=== PATIENT | male | born 1995 | race Two or more races ===

== ENCOUNTER 2017-10-18 23:03 | Emergency (ER) | payer MEDICAID, OTHER ==
[~2017-10-18] VITALS: Ht 160 cm; Wt 62.0 kg
[2017-10-19 00:49] LABS: INTERNATIONAL NORMALIZED RATIO 1.08 (0.93-1.1); PROTHROMBIN TIME 11.2 Seconds (9.6-11.5)
[2017-10-19 00:53] LABS: ALANINE AMINOTRANSFERASE 26 U/L (12-78); ALBUMIN 3.7 g/dL (3.4-5.0); ANION GAP 8 mmol/L (5-15); CALCIUM 8.1 mg/dL (8.5-10.1); CHLORIDE 110 mmol/L (98-107); CREATININE 1.11 mg/dL (0.7-1.3)
[2017-10-19 00:55] LABS: ALKALINE PHOSPHATASE 94 U/L (45-117); BILIRUBIN,TOTAL 0.3 mg/dL (0.2-1.0)
[2017-10-19 00:56] LABS: MD YES; TOTAL PROTEIN 7.5 g/dL (6.4-8.2)
[2017-10-19 00:57] LABS: MEAN CORPUSCULAR HEMOGLOBIN 19.5 pg (27.5-34.5); MEAN CORPUSCULAR HGB CONC 30.3 g/dL (33.2-36.2); MEAN CORPUSCULAR VOLUME 64.4 fL (81-97); MEAN PLATELET VOLUME 7.8 fL (7.4-10.4); PLATELET COUNT 389 x10^3/uL (130-400); RED BLOOD COUNT 4.49 x10^6/uL (4.38-5.82); RED CELL DISTRIBUTION WIDTH 20.1 % (9.4-14.8)
[2017-10-19 01:01] LABS: BASOS#(MANUAL) 0.05 x10^3/uL (0-0.1); BASOS% (MANUAL) 1 % (0-1); EOS#(MANUAL) 0.27 x10^3/uL (0.0-0.4); EOS% (MANUAL) 5 % (1-7); LYMPH#(MANUAL) 1.86 x10^3/uL (1-3.4); LYMPHS% (MANUAL) 35 % (22-44); MONOS#(MANUAL) 1.17 x10^3/uL (0.3-2.7); MONOS% (MANUAL) 22 % (2-9); SEG#(MANUAL) 1.96 x10^3/uL (1.8-6.8); SEGS% (MANUAL) 37 % (42-75)
[2017-10-19 01:06] LABS: ANISOCYTOSIS 1+
[2017-10-19 01:07] LABS: MICROCYTOSIS 1+; OVALOCYTES 1+; POLYCHROMASIA 1+
[2017-10-19 01:08] LABS: <PLATELET ESTIMATE> ADEQUATE; LARGE PLATELETS 1+
[2017-10-19 01:10] LABS: HYPOCHROMIA 1+
[2017-10-19 01:14] VITALS: BP 115/70
== END 2017-10-19 02:00 | disposition home or self-care (01) ==
LOC: ED 23:58
DX: K92.2 Gastrointestinal hemorrhage, unspecified (principal); D64.9 Anemia, unspecified
CPT/HCPCS: 36415; 80053; 83690; 85025; 85610; 85730; 99284

== ENCOUNTER 2018-01-13 10:19 | Inpatient (IN) | payer MEDICAID, OTHER ==
[2018-01-13] VITALS (14 sets, daily range): BP systolic 99–125; BP diastolic 54–75
[~2018-01-13] VITALS: Ht 160 cm; Wt 55.9 kg
[2018-01-13] MEDS ORDERED: SODIUM CHLORIDE FLUSH 10ML SYR IVF ONE (11:00)
[2018-01-13] MEDS ORDERED: SODIUM CHLORIDE 0.9% 1,000ML IVBOLUS ONE (11:00)
[2018-01-13 11:18] LABS: ALANINE AMINOTRANSFERASE 11 U/L (12-78); ALBUMIN 2.3 g/dL (3.4-5.0); ANION GAP 9 mmol/L (5-15); CALCIUM 7.9 mg/dL (8.5-10.1); CHLORIDE 105 mmol/L (98-107); CREATININE 1.24 mg/dL (0.7-1.3); INTERNATIONAL NORMALIZED RATIO 1.01 (0.93-1.1); PROTHROMBIN TIME 10.4 Seconds (9.6-11.5)
[2018-01-13 11:21] LABS: ALKALINE PHOSPHATASE 85 U/L (45-117); BILIRUBIN,TOTAL 0.3 mg/dL (0.2-1.0); TOTAL PROTEIN 6.7 g/dL (6.4-8.2)
[2018-01-13 11:27] LABS: MEAN CORPUSCULAR VOLUME 58.6 fL (81-97); MEAN PLATELET VOLUME 7.4 fL (7.4-10.4); PLATELET COUNT 576 x10^3/uL (130-400); RED BLOOD COUNT 2.28 x10^6/uL (4.38-5.82); RED CELL DISTRIBUTION WIDTH 19.6 % (9.4-14.8)
[2018-01-13 11:29] LABS: HEMOGRAM NOTE RECHECKED
[2018-01-13 12:06] LABS: MD YES
[2018-01-13 12:08] LABS: BANDS%(MANUAL) 22 % (0-7); BASOS#(MANUAL) 0.16 x10^3/uL (0-0.1); BASOS% (MANUAL) 1 % (0-1); LYMPH#(MANUAL) 1.27 x10^3/uL (1-3.4); LYMPHS% (MANUAL) 8 % (22-44); MONOS#(MANUAL) 1.27 x10^3/uL (0.3-2.7); MONOS% (MANUAL) 8 % (2-9); NRBC % (MANUAL) 4 % (0-1); SEGS% (MANUAL) 61 % (42-75)
[2018-01-13 12:12] LABS: ANISOCYTOSIS 2+; HYPOCHROMIA 2+; MICROCYTOSIS 2+
[2018-01-13 12:14] LABS: <PLATELET ESTIMATE> INCREASED; <PLT MORPHOLOGY> NORMAL PLT MORPH; POLYCHROMASIA 2+
[2018-01-13] MEDS ORDERED: ACETAMINOPHEN 500 MG TABLET ONE (13:21)
[2018-01-13] MEDS ORDERED: ACETAMINOPHEN 500 MG TABLET PO ONE (13:30)
[2018-01-13] MEDS: NS + 20MEQ KCL 1,000 ML IV SCH ×2 (13:43→23:31)
[2018-01-13 13:51] LABS: ABSOLUTE RETICS # 0.112 x10^6/uL (0.5-1.5); RETICULOCYTE COUNT % 4.96 % (0.5-1.5)
[2018-01-13 13:56] LABS: RED BLOOD COUNT 2.26 x10^6/uL (4.38-5.82)
[2018-01-13] MEDS ORDERED: ACETAMINOPHEN 325 MG TABLET PO PRN (14:00)
[2018-01-13] MEDS ORDERED: ONDANSETRON 2MG/ML, 2ML IVPush PRN (14:00)
[2018-01-14 06:18] LABS: MEAN CORPUSCULAR HEMOGLOBIN 23.9 pg (27.5-34.5); MEAN CORPUSCULAR HGB CONC 32.4 g/dL (33.2-36.2); MEAN CORPUSCULAR VOLUME 73.9 fL (81-97); MEAN PLATELET VOLUME 7.8 fL (7.4-10.4); PLATELET COUNT 419 x10^3/uL (130-400); RED BLOOD COUNT 3.38 x10^6/uL (4.38-5.82); RED CELL DISTRIBUTION WIDTH 31.3 % (9.4-14.8)
[2018-01-14 06:23] LABS: ALBUMIN 1.9 g/dL (3.4-5.0); ANION GAP 7 mmol/L (5-15); CALCIUM 8.1 mg/dL (8.5-10.1); CHLORIDE 110 mmol/L (98-107)
[2018-01-14 06:27] LABS: ALANINE AMINOTRANSFERASE 8 U/L (12-78); ALKALINE PHOSPHATASE 73 U/L (45-117); BILIRUBIN,TOTAL 0.7 mg/dL (0.2-1.0); CREATININE 0.98 mg/dL (0.7-1.3)
[2018-01-14 06:50] LABS: BAND#(MANUAL) 1.88 x10^3/uL; BANDS%(MANUAL) 19 % (0-7); LYMPH#(MANUAL) 1.09 x10^3/uL (1-3.4); LYMPHS% (MANUAL) 11 % (22-44); MD YES; SEG#(MANUAL) 5.54 x10^3/uL (1.8-6.8); SEGS% (MANUAL) 56 % (42-75)
[2018-01-14 06:51] LABS: MONOS#(MANUAL) 1.39 x10^3/uL (0.3-2.7); MONOS% (MANUAL) 14 % (2-9); NRBC % (MANUAL) 2 % (0-1); POLYCHROMASIA 1+
[2018-01-14 06:52] LABS: ANISOCYTOSIS 2+; HYPOCHROMIA 1+; MICROCYTOSIS 1+
[2018-01-14 06:53] LABS: <PLATELET ESTIMATE> ADEQUATE; <PLT MORPHOLOGY> NORMAL PLT MORPH
[2018-01-14 13:26] VITALS: BP 113/69
[2018-01-14 18:59] VITALS: BP 136/74
[2018-01-14] MEDS ORDERED: GOLYTELY 4,000ML ORAL.SOL PO ONE (19:00)
[2018-01-15 01:17] VITALS: BP 102/62
[2018-01-15 07:48] VITALS: BP 103/67
[2018-01-15] MEDS ORDERED: PROPOFOL 10 MG/ML, 20ML ONE (10:11)
[2018-01-15] MEDS ORDERED: MIDAZOLAM 1 MG/ML, 5ML ONE (14:08)
[2018-01-15 16:30] VITALS: BP 112/71
[2018-01-15] MEDS: methylPREDNISolone SOD SUCC 40 MG/ML IV SCH (16:32)
[2018-01-15 20:25] VITALS: BP 117/75
[2018-01-16 03:33] VITALS: BP 111/68
[2018-01-16] MEDS: methylPREDNISolone SOD SUCC 40 MG/ML IV SCH ×2 (04:29→16:18)
[2018-01-16 06:50] VITALS: BP 125/83
[2018-01-16 07:30] LABS: ANION GAP 7 mmol/L (5-15); CALCIUM 8.2 mg/dL (8.5-10.1); CHLORIDE 103 mmol/L (98-107); CREATININE 1.01 mg/dL (0.7-1.3)
[2018-01-16 07:56] LABS: FOLATE LEVEL 8.8 ng/mL (3.1-17.5)
[2018-01-16] MEDS: IRON SUCROSE COMPLEX 100MG/5ML IV SCH (08:09)
[2018-01-16] MEDS: LACTOBACILLUS CHEW TABLET PO SCH ×3 (08:10→21:20)
[2018-01-16] MEDS: SODIUM CHLORIDE 0.9% 1,000 ML IV SCH (08:10)
[2018-01-16 12:51] VITALS: BP 119/72
[2018-01-16] MEDS: MESALAMINE 1.2 GM TABLET.DR PO SCH (16:18)
[2018-01-16 19:29] VITALS: BP 120/73
[2018-01-17 01:03] VITALS: BP 118/68
[2018-01-17] MEDS: SODIUM CHLORIDE 0.9% 1,000 ML IV SCH ×2 (03:43→17:40)
[2018-01-17] MEDS: methylPREDNISolone SOD SUCC 40 MG/ML IV SCH ×2 (03:43→15:42)
[2018-01-17 07:44] VITALS: BP 116/71
[2018-01-17] MEDS: IRON SUCROSE COMPLEX 100MG/5ML IV SCH (08:22)
[2018-01-17] MEDS: MESALAMINE 1.2 GM TABLET.DR PO SCH ×2 (08:22→17:40)
[2018-01-17] MEDS: LACTOBACILLUS CHEW TABLET PO SCH ×3 (08:22→20:04)
[2018-01-17 14:00] VITALS: BP 104/65
[2018-01-17 19:20] VITALS: BP 116/72
[2018-01-18 00:40] VITALS: BP 113/73
[2018-01-18] MEDS: methylPREDNISolone SOD SUCC 40 MG/ML IV SCH ×2 (03:56→15:40)
[2018-01-18 05:16] LABS: MEAN CORPUSCULAR HEMOGLOBIN 24.3 pg (27.5-34.5); MEAN CORPUSCULAR HGB CONC 31.6 g/dL (33.2-36.2); MEAN CORPUSCULAR VOLUME 76.9 fL (81-97); MEAN PLATELET VOLUME 7.3 fL (7.4-10.4); PLATELET COUNT 501 x10^3/uL (130-400); RED BLOOD COUNT 3.28 x10^6/uL (4.38-5.82); RED CELL DISTRIBUTION WIDTH 32.6 % (9.4-14.8)
[2018-01-18 06:09] LABS: MD YES
[2018-01-18 06:11] LABS: BAND#(MANUAL) 1.39 x10^3/uL; BANDS%(MANUAL) 10 % (0-7); EOS#(MANUAL) 0.14 x10^3/uL (0.0-0.4); EOS% (MANUAL) 1 % (1-7); LYMPH#(MANUAL) 1.53 x10^3/uL (1-3.4); LYMPHS% (MANUAL) 11 % (22-44); NRBC % (MANUAL) 3 % (0-1); SEGS% (MANUAL) 73 % (42-75)
[2018-01-18 06:12] LABS: MONOS% (MANUAL) 5 % (2-9); SEG#(MANUAL) 10.15 x10^3/uL (1.8-6.8)
[2018-01-18 06:13] LABS: ANISOCYTOSIS 2+; POLYCHROMASIA 2+
[2018-01-18 06:14] LABS: HYPOCHROMIA 1+; MICROCYTOSIS 1+
[2018-01-18 06:15] LABS: <PLATELET ESTIMATE> INCREASED; <PLT MORPHOLOGY> NORMAL PLT MORPH
[2018-01-18] MEDS: SODIUM CHLORIDE 0.9% 1,000 ML IV SCH ×2 (06:19→20:09)
[2018-01-18 06:22] VITALS: BP_SYST 112; BP_SYST 127; BP_DIAS 76; BP_DIAS 79
[2018-01-18] MEDS: LACTOBACILLUS CHEW TABLET PO SCH ×3 (08:20→20:09)
[2018-01-18] MEDS: IRON SUCROSE COMPLEX 100MG/5ML IV SCH (08:20)
[2018-01-18] MEDS: MESALAMINE 1.2 GM TABLET.DR PO SCH ×2 (08:20→17:19)
[2018-01-18 12:30] VITALS: BP 120/76
[2018-01-18 18:54] VITALS: BP 119/64
[2018-01-19 02:29] VITALS: BP 113/73
[2018-01-19] MEDS: methylPREDNISolone SOD SUCC 40 MG/ML IV SCH ×2 (03:45→15:13)
[2018-01-19] MEDS: IRON SUCROSE COMPLEX 100MG/5ML IV SCH (07:49)
[2018-01-19] MEDS: MESALAMINE 1.2 GM TABLET.DR PO SCH (07:49)
[2018-01-19] MEDS: LACTOBACILLUS CHEW TABLET PO SCH ×2 (07:49→15:14)
[2018-01-19 07:53] VITALS: BP 116/74
[2018-01-19] MEDS: SODIUM CHLORIDE 0.9% 1,000 ML IV SCH (08:50)
[2018-01-19 12:41] VITALS: BP 110/72
[2018-01-19] MEDS ORDERED: FERR324T5 PO (12:58)
[2018-01-19] MEDS ORDERED: PRED20TA PO ×2 (12:58→13:08)
[2018-01-19] MEDS ORDERED: MESA1.2T PO (12:58)
[2018-01-19] MEDS ORDERED: ACID1TAB7 PO (12:58)
[2018-01-19] MEDS ORDERED: ACET325T14 PO (12:58)
== END 2018-01-19 16:04 | disposition home or self-care (01) | DRG 386 ==
LOC: ED 12:43 → EDIP 12:44 → ED 13:01 → CCU 14:51 → 3NE 01-14 12:27
PROVIDERS: ADMIT Internal Medicine; ATTEND Internal Medicine
PROC: 30233N1 Transfusion of Nonautologous Red Blood Cells into Peripheral Vein, Percutaneous Approach (ICD-10-PCS; principal; 2018-01-13)
PROC: 0DJ08ZZ Inspection of Upper Intestinal Tract, Via Natural or Artificial Opening Endoscopic (ICD-10-PCS; 2018-01-15)
PROC: 0DBE8ZX Excision of Large Intestine, Via Natural or Artificial Opening Endoscopic, Diagnostic (ICD-10-PCS; 2018-01-15 14:30)
DX: K51.911 Ulcerative colitis, unspecified with rectal bleeding (principal); E44.0 Moderate protein-calorie malnutrition; E87.1 Hypo-osmolality and hyponatremia; R57.9 Shock, unspecified; R65.10 Systemic inflammatory response syndrome (SIRS) of non-infectious origin without acute organ dysfunction; D50.0 Iron deficiency anemia secondary to blood loss (chronic); D72.825 Bandemia; Z68.21 Body mass index [BMI] 21.0-21.9, adult; G47.00 Insomnia, unspecified
CPT/HCPCS: 36415; 36430; 80048; 80053; 82607; 82728; 82746; 83540; 83550; 83690; 84466; 85014; 85018; 85025; 85045; 85610; 85730; 86677; 86850; 86900; 86923; 87040; 87081; 88305; 93005; 99291; J1756; J2250; J2704; J3480; J2920; J7030; P9016

== ENCOUNTER 2018-01-30 11:54 | Inpatient (IN) | payer MEDICAID, OTHER ==
[2018-01-30] VITALS (8 sets, daily range): BP systolic 111–129; BP diastolic 67–85
[~2018-01-30] VITALS: Ht 160 cm; Wt 50.0 kg
[~2018-01-30 11:54] MED LIST: ACET325T14 PO; ACID1TAB7 PO; FERR324T5 PO; MESA1.2T PO; PRED20TA PO
[2018-01-30] MEDS ORDERED: PANTOPRAZOLE 40 MG IV ONE (12:55)
[2018-01-30] MEDS ORDERED: PANTOPRAZOLE 40 MG IV IVPush ONE (13:00)
[2018-01-30] MEDS ORDERED: SODIUM CHLORIDE FLUSH 10ML SYR IVF ONE (13:00)
[2018-01-30] MEDS ORDERED: SODIUM CHLORIDE 0.9% 1,000ML IVBOLUS ONE (13:00)
[2018-01-30 13:11] LABS: INTERNATIONAL NORMALIZED RATIO 0.97 (0.93-1.1); PROTHROMBIN TIME 10.1 Seconds (9.6-11.5)
[2018-01-30 13:12] LABS: MEAN CORPUSCULAR HEMOGLOBIN 23.4 pg (27.5-34.5); MEAN CORPUSCULAR VOLUME 77.9 fL (81-97); MEAN PLATELET VOLUME 6.6 fL (7.4-10.4); PLATELET COUNT 445 x10^3/uL (130-400); RED BLOOD COUNT 2.41 x10^6/uL (4.38-5.82); RED CELL DISTRIBUTION WIDTH 31.2 % (9.4-14.8)
[2018-01-30 13:14] LABS: ALANINE AMINOTRANSFERASE 31 U/L (12-78); ALBUMIN 2.1 g/dL (3.4-5.0); ANION GAP 7 mmol/L (5-15); CHLORIDE 105 mmol/L (98-107); CREATININE 0.88 mg/dL (0.7-1.3)
[2018-01-30 13:16] LABS: ALKALINE PHOSPHATASE 96 U/L (45-117); BILIRUBIN,TOTAL 0.2 mg/dL (0.2-1.0); TOTAL PROTEIN 6.4 g/dL (6.4-8.2)
[2018-01-30 13:26] LABS: BASOPHILS # (AUTO) 0.01 x10^3/uL (0-0.1); BASOPHILS % (AUTO) 0 % (0-1); EOSINOPHILS # (AUTO) 0.01 x10^3/uL (0-0.4); EOSINOPHILS % (AUTO) 0 % (1-7); LYMPHOCYTES # (AUTO) 0.35 x10^3/uL (1-3.4); LYMPHOCYTES % (AUTO) 4 % (22-44); MD MORPH REVIEW ONLY; MONOCYTES # (AUTO) 0.27 x10^3/uL (0.2-0.8); MONOCYTES % (AUTO) 3 % (2-9); NEUTROPHILS # (AUTO) 8.37 x10^3/uL (1.8-6.8); NEUTROPHILS % (AUTO) 93 % (42-75)
[2018-01-30 13:27] LABS: ANISOCYTOSIS 2+; MICROCYTOSIS 1+; POLYCHROMASIA 2+
[2018-01-30 13:28] LABS: <PLATELET ESTIMATE> INCREASED; SMALL PLATELETS 1+
[2018-01-30 13:29] LABS: HYPOCHROMIA 2+
[2018-01-30] MEDS ORDERED: POLYETHYLENE GLYCOL 17 GM PACKET PO PRN (17:00)
[2018-01-30] MEDS ORDERED: ONDANSETRON ODT 4 MG PO PRN (17:00)
[2018-01-30] MEDS: LACTOBACILLUS CHEW TABLET PO SCH ×2 (17:00→21:00)
[2018-01-30] MEDS ORDERED: ACETAMINOPHEN 325 MG TABLET PO PRN (17:00)
[2018-01-30] MEDS ORDERED: HEPARIN wt. based STROKE protocol IV PRN (17:30)
[2018-01-30] MEDS ORDERED: DO NOT GIVE XX PRN (17:30)
[2018-01-30] MEDS ORDERED: FENTANYL PF 100 MCG/2ML ONE (18:40)
[2018-01-30] MEDS ORDERED: LIDOCAINE-MPF 1%, 2ML ONE (18:41)
[2018-01-30] MEDS ORDERED: MIDAZOLAM 1 MG/ML, 2ML ONE (18:57)
[2018-01-30] MEDS: methylPREDNISolone SOD SUCC 125 MG/2 ML IVPush SCH (20:24)
[2018-01-30] MEDS: MESALAMINE 1.2 GM TABLET.DR PO SCH (20:24)
[2018-01-30] MEDS: SODIUM CHLORIDE 0.9% 1,000 ML IV SCH (20:30)
[2018-01-31 00:17] VITALS: BP 103/65
[2018-01-31] MEDS: SODIUM CHLORIDE 0.9% 1,000 ML IV SCH ×3 (04:30→18:54)
[2018-01-31 06:21] LABS: ALANINE AMINOTRANSFERASE 26 U/L (12-78); ANION GAP 8 mmol/L (5-15); CALCIUM 8.3 mg/dL (8.5-10.1); CHLORIDE 110 mmol/L (98-107); CREATININE 0.72 mg/dL (0.7-1.3)
[2018-01-31 06:23] LABS: ALKALINE PHOSPHATASE 88 U/L (45-117); BILIRUBIN,TOTAL 0.3 mg/dL (0.2-1.0); TOTAL PROTEIN 6.1 g/dL (6.4-8.2)
[2018-01-31 06:28] LABS: MEAN CORPUSCULAR HEMOGLOBIN 26.3 pg (27.5-34.5); MEAN CORPUSCULAR HGB CONC 31.8 g/dL (33.2-36.2); MEAN CORPUSCULAR VOLUME 82.9 fL (81-97); MEAN PLATELET VOLUME 6.7 fL (7.4-10.4); PLATELET COUNT 358 x10^3/uL (130-400); RED BLOOD COUNT 3.43 x10^6/uL (4.38-5.82); RED CELL DISTRIBUTION WIDTH 26.1 % (9.4-14.8)
[2018-01-31 06:54] LABS: BASOPHILS # (AUTO) 0.01 x10^3/uL (0-0.1); BASOPHILS % (AUTO) 0 % (0-1); EOSINOPHILS % (AUTO) 0 % (1-7); LYMPHOCYTES # (AUTO) 0.77 x10^3/uL (1-3.4); LYMPHOCYTES % (AUTO) 6 % (22-44); MD MORPH REVIEW ONLY; MONOCYTES # (AUTO) 0.52 x10^3/uL (0.2-0.8); MONOCYTES % (AUTO) 4 % (2-9); NEUTROPHILS # (AUTO) 11.12 x10^3/uL (1.8-6.8); NEUTROPHILS % (AUTO) 90 % (42-75)
[2018-01-31 06:55] LABS: ANISOCYTOSIS 2+; HYPOCHROMIA 1+; MICROCYTOSIS 1+; POLYCHROMASIA 2+
[2018-01-31 06:56] LABS: <PLATELET ESTIMATE> ADEQUATE; <PLT MORPHOLOGY> NORMAL PLT MORPH
[2018-01-31] MEDS: PANTOPRAZOLE 40 MG IV IVPush SCH (08:04)
[2018-01-31] MEDS: methylPREDNISolone SOD SUCC 125 MG/2 ML IVPush SCH ×2 (08:04→20:45)
[2018-01-31] MEDS: LACTOBACILLUS CHEW TABLET PO SCH ×3 (08:05→20:45)
[2018-01-31] MEDS: MESALAMINE 1.2 GM TABLET.DR PO SCH ×2 (08:05→17:42)
[2018-01-31] MEDS: FERROUS SULFATE 325 MG TABLET PO SCH (08:05)
[2018-01-31] MEDS: HEPARIN 5,000 UNITS/ML, 1ML SQ SCH ×2 (10:05→17:43)
[2018-01-31] MEDS: NEOMYCIN SULFATE 500 MG TABLET PO SCH ×3 (13:06→23:07)
[2018-01-31] MEDS: metroNIDAZOLE 500 MG TABLET PO SCH ×3 (13:06→23:06)
[2018-01-31] MEDS: MAGNESIUM CITRATE 300ML ORAL SOL PO SCH ×2 (15:52→20:45)
[2018-02-01] MEDS: HEPARIN 5,000 UNITS/ML, 1ML SQ SCH ×3 (02:29→18:32)
[2018-02-01] MEDS: SODIUM CHLORIDE 0.9% 1,000 ML IV SCH ×2 (03:59→12:03)
[2018-02-01] MEDS: methylPREDNISolone SOD SUCC 125 MG/2 ML IVPush SCH ×2 (07:57→19:54)
[2018-02-01] MEDS: PANTOPRAZOLE 40 MG IV IVPush SCH (07:57)
[2018-02-01] MEDS: MESALAMINE 1.2 GM TABLET.DR PO SCH ×2 (08:00→17:00)
[2018-02-01] MEDS: FERROUS SULFATE 325 MG TABLET PO SCH (08:44)
[2018-02-01] MEDS: LACTOBACILLUS CHEW TABLET PO SCH ×3 (08:44→19:54)
[2018-02-01] MEDS ORDERED: BUPIVACAINE/PF-EPI 0.5% 1:200K ONE (13:31)
[2018-02-01] MEDS ORDERED: MIDAZOLAM 1 MG/ML, 2ML ONE ×2 (13:58→16:48)
[2018-02-01] MEDS ORDERED: FENTANYL PF 100 MCG/2ML ONE ×3 (13:59→16:36)
[2018-02-01] MEDS ORDERED: CEFOTETAN 2 GM ONE (14:09)
[2018-02-01] MEDS ORDERED: ROCURONIUM 10MG/ML,5ML ONE (14:09)
[2018-02-01] MEDS ORDERED: DEXAMETHASONE 4 MG/ML, 1ML ONE (14:09)
[2018-02-01] MEDS ORDERED: SUCCINYLCHOLINE 20 MG/ML, 10ML ONE (14:09)
[2018-02-01] MEDS ORDERED: PROPOFOL 10 MG/ML, 20ML ONE (14:09)
[2018-02-01] MEDS ORDERED: BUPIVACAINE/PF 0.5% INFIL ONE (14:48)
[2018-02-01] MEDS ORDERED: HALOPERIDOL 5 MG/ML IV PRN (15:00)
[2018-02-01] MEDS ORDERED: ALBUTEROL SULFATE 2.5 MG/3 ML NPPB PRN (15:00)
[2018-02-01] MEDS ORDERED: ACETAMINOPHEN 325 MG TABLET PO PRN (15:00)
[2018-02-01] MEDS ORDERED: PROMETHAZINE 25 MG/ML, 1ML IV PRN (15:00)
[2018-02-01] MEDS ORDERED: OXYcodone 5 MG/5 ML ORAL.SOL UDC PO PRN (15:00)
[2018-02-01] MEDS ORDERED: MIDAZOLAM 1 MG/ML, 2ML IV PRN (15:00)
[2018-02-01] MEDS ORDERED: hydrALAzine 20 MG/ML, 1ML IV PRN (15:00)
[2018-02-01] MEDS ORDERED: MEPERIDINE/PF 25MG/0.5ML IVPush PRN (15:00)
[2018-02-01] MEDS ORDERED: LABETALOL 5MG/ML, 20ML IV PRN (15:00)
[2018-02-01] MEDS ORDERED: ONDANSETRON ODT 8 MG PO PRN (15:00)
[2018-02-01] MEDS ORDERED: HYDROcodone/APAP 7.5-325MG/15ML UDC PO PRN (15:00)
[2018-02-01] MEDS ORDERED: EPHEDRINE 50 MG/ML, 1ML IVPush PRN (15:00)
[2018-02-01] MEDS ORDERED: HYDROmorphone 2 MG/ML, 1ML ONE (15:59)
[2018-02-01] MEDS: FENTANYL PF 100 MCG/2ML IV PRN ×3 (16:13→16:40)
[2018-02-01] MEDS: HYDROmorphone 1 MG/ML, 1ML IV PRN ×4 (16:18→17:00)
[2018-02-01] MEDS ORDERED: MEPERIDINE/PF 50 MG/ML ONE (16:44)
[2018-02-01] MEDS: OXYcodone IR 5MG TABLET PO PRN (19:54)
[2018-02-02] MEDS: OXYcodone IR 5MG TABLET PO PRN ×4 (00:27→19:18)
[2018-02-02] MEDS: SODIUM CHLORIDE 0.9% 1,000 ML IV SCH ×2 (00:29→08:39)
[2018-02-02] MEDS: HEPARIN 5,000 UNITS/ML, 1ML SQ SCH ×2 (02:40→10:41)
[2018-02-02] MEDS: MESALAMINE 1.2 GM TABLET.DR PO SCH ×2 (07:31→16:42)
[2018-02-02] MEDS: methylPREDNISolone SOD SUCC 125 MG/2 ML IVPush SCH ×2 (07:31→19:17)
[2018-02-02] MEDS: PANTOPRAZOLE 40 MG IV IVPush SCH (07:31)
[2018-02-02] MEDS: LACTOBACILLUS CHEW TABLET PO SCH ×3 (08:51→21:59)
[2018-02-02] MEDS: FERROUS SULFATE 325 MG TABLET PO SCH (08:51)
[2018-02-02] MEDS ORDERED: HEPARIN 25,000 UNITS/500ML PMX 500 ML IV PRN (15:00)
[2018-02-02] MEDS ORDERED: HEPARIN wt. based STROKE protocol MC PRN (15:00)
[2018-02-02 17:43] VITALS: BP 117/77
[2018-02-02 18:58] VITALS: BP 128/76
[2018-02-03 00:39] VITALS: BP 106/66
[2018-02-03 05:42] LABS: ALBUMIN 2.2 g/dL (3.4-5.0); CALCIUM 8.4 mg/dL (8.5-10.1); CHLORIDE 105 mmol/L (98-107)
[2018-02-03 05:47] LABS: ALANINE AMINOTRANSFERASE 26 U/L (12-78); ALKALINE PHOSPHATASE 75 U/L (45-117); ANION GAP 8 mmol/L (5-15); BILIRUBIN,TOTAL 0.2 mg/dL (0.2-1.0); CREATININE 0.78 mg/dL (0.7-1.3); TOTAL PROTEIN 6.2 g/dL (6.4-8.2)
[2018-02-03 05:48] LABS: MEAN CORPUSCULAR HEMOGLOBIN 25.6 pg (27.5-34.5); MEAN CORPUSCULAR VOLUME 82.6 fL (81-97); MEAN PLATELET VOLUME 7.5 fL (7.4-10.4); PLATELET COUNT 217 x10^3/uL (130-400); RED BLOOD COUNT 3.08 x10^6/uL (4.38-5.82); RED CELL DISTRIBUTION WIDTH 25.9 % (9.4-14.8)
[2018-02-03 06:23] LABS: BASOPHILS % (AUTO) 0 % (0-1); EOSINOPHILS % (AUTO) 0 % (1-7); LYMPHOCYTES % (AUTO) 7 % (22-44); MD SCAN; MONOCYTES # (AUTO) 0.57 x10^3/uL (0.2-0.8); MONOCYTES % (AUTO) 6 % (2-9); NEUTROPHILS # (AUTO) 8.39 x10^3/uL (1.8-6.8); NEUTROPHILS % (AUTO) 87 % (42-75)
[2018-02-03 07:55] VITALS: BP 102/61
[2018-02-03] MEDS: PANTOPRAZOLE 40 MG IV IVPush SCH (08:07)
[2018-02-03] MEDS: methylPREDNISolone SOD SUCC 125 MG/2 ML IVPush SCH ×2 (08:07→21:25)
[2018-02-03] MEDS: MESALAMINE 1.2 GM TABLET.DR PO SCH ×2 (08:07→17:07)
[2018-02-03] MEDS: LACTOBACILLUS CHEW TABLET PO SCH ×3 (08:08→21:25)
[2018-02-03] MEDS: FERROUS SULFATE 325 MG TABLET PO SCH (08:08)
[2018-02-03] MEDS: OXYcodone IR 5MG TABLET PO PRN ×4 (08:08→23:09)
[2018-02-03 12:00] VITALS: BP 101/64
[2018-02-03] MEDS: HEPARIN 5,000 UNITS/ML, 1ML IV PRN ×2 (12:49→20:30)
[2018-02-03 19:44] VITALS: BP 109/63
[2018-02-03] MEDS: HEPARIN 25,000 UNITS/500ML PMX 500 ML IV PRN (21:24)
[2018-02-04 00:37] VITALS: BP 112/64
[2018-02-04 02:35] LABS: MEAN CORPUSCULAR HEMOGLOBIN 25.3 pg (27.5-34.5); MEAN CORPUSCULAR HGB CONC 30.8 g/dL (33.2-36.2); MEAN CORPUSCULAR VOLUME 82.2 fL (81-97); MEAN PLATELET VOLUME 6.8 fL (7.4-10.4); PLATELET COUNT 237 x10^3/uL (130-400); RED BLOOD COUNT 2.85 x10^6/uL (4.38-5.82); RED CELL DISTRIBUTION WIDTH 25.5 % (9.4-14.8)
[2018-02-04 02:45] LABS: ALANINE AMINOTRANSFERASE 50 U/L (12-78); ALBUMIN 2.4 g/dL (3.4-5.0); ANION GAP 7 mmol/L (5-15); CHLORIDE 107 mmol/L (98-107); CREATININE 0.82 mg/dL (0.7-1.3)
[2018-02-04 02:47] LABS: ALKALINE PHOSPHATASE 91 U/L (45-117); BILIRUBIN,TOTAL 0.2 mg/dL (0.2-1.0); TOTAL PROTEIN 6.1 g/dL (6.4-8.2)
[2018-02-04 03:05] LABS: BASOPHILS % (AUTO) 0 % (0-1); EOSINOPHILS % (AUTO) 0 % (1-7); LYMPHOCYTES # (AUTO) 0.38 x10^3/uL (1-3.4); LYMPHOCYTES % (AUTO) 3 % (22-44); MD MORPH REVIEW ONLY; MONOCYTES # (AUTO) 0.31 x10^3/uL (0.2-0.8); MONOCYTES % (AUTO) 3 % (2-9); NEUTROPHILS # (AUTO) 10.96 x10^3/uL (1.8-6.8); NEUTROPHILS % (AUTO) 94 % (42-75)
[2018-02-04 03:06] LABS: ANISOCYTOSIS 2+; MICROCYTOSIS 1+
[2018-02-04 03:07] LABS: <PLATELET ESTIMATE> ADEQUATE; HYPOCHROMIA 1+; POLYCHROMASIA 1+
[2018-02-04 03:08] LABS: <PLT MORPHOLOGY> NORMAL PLT MORPH
[2018-02-04] MEDS: HEPARIN 5,000 UNITS/ML, 1ML IV PRN ×3 (04:06→23:51)
[2018-02-04 05:45] VITALS: BP 109/54
[2018-02-04] MEDS: OXYcodone IR 5MG TABLET PO PRN (05:50)
[2018-02-04 07:15] VITALS: BP 103/62
[2018-02-04] MEDS: LACTOBACILLUS CHEW TABLET PO SCH ×3 (08:06→19:54)
[2018-02-04] MEDS: PANTOPRAZOLE 40 MG IV IVPush SCH (08:06)
[2018-02-04] MEDS: FERROUS SULFATE 325 MG TABLET PO SCH (08:06)
[2018-02-04] MEDS: methylPREDNISolone SOD SUCC 125 MG/2 ML IVPush SCH ×2 (08:06→19:55)
[2018-02-04] MEDS: MESALAMINE 1.2 GM TABLET.DR PO SCH ×2 (08:06→18:03)
[2018-02-04 15:48] VITALS: BP 119/73
[2018-02-04 19:46] VITALS: BP 123/72
[2018-02-04] MEDS: HEPARIN 25,000 UNITS/500ML PMX 500 ML IV PRN (19:50)
[2018-02-05 01:29] VITALS: BP 120/65
[2018-02-05 06:31] LABS: MEAN CORPUSCULAR HEMOGLOBIN 25.5 pg (27.5-34.5); MEAN CORPUSCULAR HGB CONC 30.6 g/dL (33.2-36.2); MEAN CORPUSCULAR VOLUME 83.4 fL (81-97); MEAN PLATELET VOLUME 7.2 fL (7.4-10.4); PLATELET COUNT 228 x10^3/uL (130-400); RED BLOOD COUNT 3.01 x10^6/uL (4.38-5.82); RED CELL DISTRIBUTION WIDTH 24.8 % (9.4-14.8)
[2018-02-05 06:42] LABS: ALANINE AMINOTRANSFERASE 50 U/L (12-78); ALBUMIN 2.4 g/dL (3.4-5.0); ANION GAP 7 mmol/L (5-15); CALCIUM 8.3 mg/dL (8.5-10.1); CHLORIDE 109 mmol/L (98-107); CREATININE 0.68 mg/dL (0.7-1.3)
[2018-02-05 06:45] LABS: ALKALINE PHOSPHATASE 92 U/L (45-117); BILIRUBIN,TOTAL 0.4 mg/dL (0.2-1.0); TOTAL PROTEIN 6.1 g/dL (6.4-8.2)
[2018-02-05 06:50] LABS: BASOPHILS # (AUTO) 0.03 x10^3/uL (0-0.1); BASOPHILS % (AUTO) 0 % (0-1); EOSINOPHILS % (AUTO) 0 % (1-7); LYMPHOCYTES # (AUTO) 0.69 x10^3/uL (1-3.4); LYMPHOCYTES % (AUTO) 7 % (22-44); MD SCAN; MONOCYTES % (AUTO) 5 % (2-9); NEUTROPHILS # (AUTO) 8.74 x10^3/uL (1.8-6.8); NEUTROPHILS % (AUTO) 88 % (42-75)
[2018-02-05] MEDS: PANTOPRAZOLE 40 MG IV IVPush SCH (07:48)
[2018-02-05] MEDS: FERROUS SULFATE 325 MG TABLET PO SCH (08:13)
[2018-02-05] MEDS: MESALAMINE 1.2 GM TABLET.DR PO SCH ×2 (08:13→15:48)
[2018-02-05] MEDS: LACTOBACILLUS CHEW TABLET PO SCH ×3 (08:13→20:33)
[2018-02-05] MEDS: methylPREDNISolone SOD SUCC 125 MG/2 ML IVPush SCH ×2 (08:13→20:33)
[2018-02-05 08:50] VITALS: BP 111/85
[2018-02-05] MEDS: OXYcodone IR 5MG TABLET PO PRN (11:44)
[2018-02-05] MEDS: HEPARIN 5,000 UNITS/ML, 1ML IV PRN (12:44)
[2018-02-05] MEDS: HEPARIN 25,000 UNITS/500ML PMX 500 ML IV PRN (13:25)
[2018-02-05 19:30] VITALS: BP 129/77
[2018-02-06 01:26] VITALS: BP 113/63
[2018-02-06 05:19] LABS: ALBUMIN 2.6 g/dL (3.4-5.0); ANION GAP 8 mmol/L (5-15); CALCIUM 8.7 mg/dL (8.5-10.1); CHLORIDE 108 mmol/L (98-107)
[2018-02-06 05:21] LABS: MEAN CORPUSCULAR HEMOGLOBIN 25.8 pg (27.5-34.5); MEAN CORPUSCULAR HGB CONC 30.8 g/dL (33.2-36.2); MEAN CORPUSCULAR VOLUME 83.6 fL (81-97); MEAN PLATELET VOLUME 7.4 fL (7.4-10.4); PLATELET COUNT 271 x10^3/uL (130-400); RED BLOOD COUNT 3.14 x10^6/uL (4.38-5.82); RED CELL DISTRIBUTION WIDTH 25.1 % (9.4-14.8)
[2018-02-06 05:22] LABS: ALANINE AMINOTRANSFERASE 63 U/L (12-78); ALKALINE PHOSPHATASE 93 U/L (45-117); BILIRUBIN,TOTAL 0.3 mg/dL (0.2-1.0); CREATININE 0.73 mg/dL (0.7-1.3); TOTAL PROTEIN 6.4 g/dL (6.4-8.2)
[2018-02-06 05:41] LABS: BASOPHILS # (AUTO) 0.01 x10^3/uL (0-0.1); BASOPHILS % (AUTO) 0 % (0-1); EOSINOPHILS # (AUTO) 0.22 x10^3/uL (0-0.4); EOSINOPHILS % (AUTO) 2 % (1-7); LYMPHOCYTES # (AUTO) 0.69 x10^3/uL (1-3.4); LYMPHOCYTES % (AUTO) 6 % (22-44); MD SCAN; MONOCYTES # (AUTO) 0.51 x10^3/uL (0.2-0.8); MONOCYTES % (AUTO) 5 % (2-9); NEUTROPHILS # (AUTO) 9.92 x10^3/uL (1.8-6.8); NEUTROPHILS % (AUTO) 87 % (42-75)
[2018-02-06] MEDS: HEPARIN 25,000 UNITS/500ML PMX 500 ML IV PRN (06:12)
[2018-02-06 07:53] VITALS: BP 114/67
[2018-02-06] MEDS: methylPREDNISolone SOD SUCC 125 MG/2 ML IVPush SCH ×2 (08:08→20:00)
[2018-02-06] MEDS: LACTOBACILLUS CHEW TABLET PO SCH ×3 (08:08→20:00)
[2018-02-06] MEDS: FERROUS SULFATE 325 MG TABLET PO SCH (08:08)
[2018-02-06] MEDS: PANTOPRAZOLE 40 MG IV IVPush SCH (08:08)
[2018-02-06] MEDS: MESALAMINE 1.2 GM TABLET.DR PO SCH ×2 (08:08→17:56)
[2018-02-06] MEDS: RIVAROXABAN 15 MG TABLET PO SCH ×2 (12:19→23:03)
[2018-02-06 14:14] VITALS: BP 104/63
[2018-02-06 20:44] VITALS: BP 113/63
[2018-02-07 02:14] VITALS: BP 101/61
[2018-02-07 05:05] LABS: ANION GAP 8 mmol/L (5-15); CALCIUM 8.9 mg/dL (8.5-10.1); CHLORIDE 107 mmol/L (98-107)
[2018-02-07 05:06] LABS: CREATININE 0.78 mg/dL (0.7-1.3)
[2018-02-07 05:11] LABS: MEAN CORPUSCULAR HEMOGLOBIN 25.7 pg (27.5-34.5); MEAN CORPUSCULAR HGB CONC 30.9 g/dL (33.2-36.2); MEAN CORPUSCULAR VOLUME 83.3 fL (81-97); MEAN PLATELET VOLUME 7.4 fL (7.4-10.4); PLATELET COUNT 336 x10^3/uL (130-400); RED CELL DISTRIBUTION WIDTH 24.8 % (9.4-14.8)
[2018-02-07 06:06] LABS: BASOPHILS % (AUTO) 0 % (0-1); EOSINOPHILS # (AUTO) 0.42 x10^3/uL (0-0.4); EOSINOPHILS % (AUTO) 4 % (1-7); LYMPHOCYTES # (AUTO) 0.75 x10^3/uL (1-3.4); LYMPHOCYTES % (AUTO) 7 % (22-44); MD SCAN; MONOCYTES # (AUTO) 0.49 x10^3/uL (0.2-0.8); MONOCYTES % (AUTO) 5 % (2-9); NEUTROPHILS # (AUTO) 8.66 x10^3/uL (1.8-6.8); NEUTROPHILS % (AUTO) 84 % (42-75)
[2018-02-07] MEDS: PANTOPRAZOLE 40 MG IV IVPush SCH (08:10)
[2018-02-07] MEDS: FERROUS SULFATE 325 MG TABLET PO SCH (08:10)
[2018-02-07 08:30] VITALS: BP 103/64
[2018-02-07] MEDS: methylPREDNISolone SOD SUCC 125 MG/2 ML IVPush SCH (10:04)
[2018-02-07] MEDS: MESALAMINE 1.2 GM TABLET.DR PO SCH (10:04)
[2018-02-07] MEDS: LACTOBACILLUS CHEW TABLET PO SCH (10:04)
[2018-02-07] MEDS: RIVAROXABAN 15 MG TABLET PO SCH (10:56)
[2018-02-07] MEDS ORDERED: RIVA1TAB PO (12:42)
[2018-02-07] MEDS ORDERED: PRED10TA PO (12:42)
[2018-02-07 13:18] VITALS: BP 118/70
[2018-02-27] MEDS ORDERED: RIVAROXABAN 20 MG TABLET PO SCH (11:00)
== END 2018-02-07 17:03 | disposition home or self-care (01) | DRG 329 ==
LOC: ED 13:26 → EDIP 13:27 → ED 13:47 → CCU 17:54 → 3NE 02-02 17:15
PROVIDERS: ADMIT Internal Medicine; ATTEND Internal Medicine
PROC: 06H03DZ Insertion of Intraluminal Device into Inferior Vena Cava, Percutaneous Approach (ICD-10-PCS; 2018-01-30)
PROC: 30233N1 Transfusion of Nonautologous Red Blood Cells into Peripheral Vein, Percutaneous Approach (ICD-10-PCS; 2018-01-30)
PROC: 0D1B4Z4 Bypass Ileum to Cutaneous, Percutaneous Endoscopic Approach (ICD-10-PCS; 2018-02-01)
PROC: 0DTE4ZZ Resection of Large Intestine, Percutaneous Endoscopic Approach (ICD-10-PCS; principal; 2018-02-01 14:00)
DX: K51.011 Ulcerative (chronic) pancolitis with rectal bleeding (principal); E43 Unspecified severe protein-calorie malnutrition; I82.411 Acute embolism and thrombosis of right femoral vein; D62 Acute posthemorrhagic anemia; Z68.1 Body mass index [BMI] 19.9 or less, adult; F19.20 Other psychoactive substance dependence, uncomplicated; I82.441 Acute embolism and thrombosis of right tibial vein; D63.8 Anemia in other chronic diseases classified elsewhere; Z83.3 Family history of diabetes mellitus; F17.200 Nicotine dependence, unspecified, uncomplicated; Z79.01 Long term (current) use of anticoagulants; Z79.4 Long term (current) use of insulin; Z79.52 Long term (current) use of systemic steroids; Z90.49 Acquired absence of other specified parts of digestive tract
CPT/HCPCS: 36415; 99285; S0074; 36430; 37191; 80048; 80053; 83605; 83735; 84100; 85014; 85018; 85025; 85520; 85610; 85730; 86850; 86900; 86923; 87081; 88307; 93005; 96374; 99156; 99157; C1880; J1100; J1170; J1644; J2175; J2250; J2704; J3010; J3490; C9113; J0330; J2930; J7030; P9016

== ENCOUNTER 2018-02-15 20:43 | Emergency (ER) | payer MEDICAID ==
[~2018-02-15] VITALS: Ht 160 cm; Wt 53.9 kg
[~2018-02-15 20:43] MED LIST changes: +PRED10TA PO; +RIVA1TAB PO
[2018-02-15] MEDS ORDERED: OMNIPAQUE 350 MG/ML, 100ML BOTTLE ONE (21:15)
[2018-02-15 21:41] LABS: MEAN CORPUSCULAR HEMOGLOBIN 24.8 pg (27.5-34.5); MEAN CORPUSCULAR VOLUME 79.8 fL (81-97); MEAN PLATELET VOLUME 6.3 fL (7.4-10.4); PLATELET COUNT 499 x10^3/uL (130-400); RED BLOOD COUNT 3.57 x10^6/uL (4.38-5.82); RED CELL DISTRIBUTION WIDTH 22.1 % (9.4-14.8)
[2018-02-15 21:46] LABS: ALANINE AMINOTRANSFERASE 32 U/L (12-78); ALBUMIN 3.3 g/dL (3.4-5.0); ANION GAP 8 mmol/L (5-15); CHLORIDE 107 mmol/L (98-107); CREATININE 0.83 mg/dL (0.7-1.3)
[2018-02-15 21:49] LABS: ALKALINE PHOSPHATASE 121 U/L (45-117); BILIRUBIN,TOTAL 0.3 mg/dL (0.2-1.0); TOTAL PROTEIN 7.4 g/dL (6.4-8.2)
[2018-02-15 22:00] LABS: BASOPHILS # (AUTO) 0.12 x10^3/uL (0-0.1); BASOPHILS % (AUTO) 1 % (0-1); EOSINOPHILS # (AUTO) 0.04 x10^3/uL (0-0.4); EOSINOPHILS % (AUTO) 0 % (1-7); LYMPHOCYTES # (AUTO) 1.31 x10^3/uL (1-3.4); LYMPHOCYTES % (AUTO) 11 % (22-44); MD SCAN; MONOCYTES # (AUTO) 0.77 x10^3/uL (0.2-0.8); MONOCYTES % (AUTO) 7 % (2-9); NEUTROPHILS # (AUTO) 9.59 x10^3/uL (1.8-6.8); NEUTROPHILS % (AUTO) 81 % (42-75)
[2018-02-15 23:10] VITALS: BP 118/70
== END 2018-02-15 23:12 | disposition home or self-care (01) ==
LOC: ED 22:09
DX: T81.30XA Disruption of wound, unspecified, initial encounter (principal); L76.82 Other postprocedural complications of skin and subcutaneous tissue; F17.200 Nicotine dependence, unspecified, uncomplicated
CPT/HCPCS: 36415; 74177; 80053; 83690; 85025; 99285; Q9967

== ENCOUNTER 2018-05-23 16:40 | Emergency (ER) | payer MEDICAID ==
[~2018-05-23] VITALS: Ht 160 cm; Wt 60.7 kg
[2018-05-23] MEDS ORDERED: SODIUM CHLORIDE 0.9% 1,000 ML IV ONE (17:09)
[2018-05-23] MEDS ORDERED: HYDROmorphone 2 MG/ML, 1ML ONE (17:16)
[2018-05-23] MEDS ORDERED: ONDANSETRON 2MG/ML, 2ML IVPush ONE (17:30)
[2018-05-23] MEDS ORDERED: SODIUM CHLORIDE 0.9% 1,000ML IVBOLUS ONE (17:30)
[2018-05-23] MEDS ORDERED: HYDROmorphone 1 MG/ML, 1ML IVPush PRN (17:30)
[2018-05-23] MEDS ORDERED: SODIUM CHLORIDE FLUSH 10ML SYR IVF ONE (17:30)
[2018-05-23 17:38] VITALS: BP 93/59
== END 2018-05-23 17:42 | disposition home or self-care (01) ==
LOC: ED 17:36
DX: T81.31XA Disruption of external operation (surgical) wound, not elsewhere classified, initial encounter (principal); K51.80 Other ulcerative colitis without complications; D62 Acute posthemorrhagic anemia; I82.409 Acute embolism and thrombosis of unspecified deep veins of unspecified lower extremity; Z93.3 Colostomy status; Y08.89XA Assault by other specified means, initial encounter; Y93.89 Activity, other specified; Y92.89 Other specified places as the place of occurrence of the external cause; Y99.8 Other external cause status
CPT/HCPCS: 96374; 99284; J1170; J7030

== ENCOUNTER 2018-10-09 23:09 | Inpatient (IN) | payer MEDICAID, OTHER ==
[~2018-10-09] VITALS: Ht 160 cm; Wt 50.7 kg
--- NOTE | 2018-10-09 23:22 | NUR ---
TASK RN: AZEEM ESCALANTE FROM [facility] W/ CO GENERALIZED ABD PAIN X FOUR DAYS. +NAUSEA/VOMITING/DECREASED OUTPUT FROM COLOSTOMY. COLOSTOMY PLACED FOR TX OF ULCERATIVE COLITIS. DENIES CP/BLOOD IN EMESIS OR STOOL/FEVER/URINARY SYMPTOMS. GIVEN ZOFRAN 4MG PO W/ IMPROVEMENT IN NAUSEA GIVEN 2L NS BY [facility] TODAY BP/SPO2 MONITOR IN PLACE. OFFICER AT BEDSIDE. PRIMARY RN, DEBRA ZAIDI.
[2018-10-09] MEDS ORDERED: SODIUM CHLORIDE FLUSH 10ML SYR IVF ONE (23:30)
--- NOTE | 2018-10-09 23:46 | NUR ---
report received from task RN Yumi. this RN unaware that there was an IV in place on arrival, second IV placed, labs drawn and sent to lab. pt given urinal, provided education to provide urine sample with gaurd assistance. pt demonstrates understanding. bp and spo2 monitors in place. pt awaiting lab results and CT.
[2018-10-09 23:52] LABS: BASOPHILS # (AUTO) 0.01 x10^3/uL (0-0.1); BASOPHILS % (AUTO) 0 % (0-1); EOSINOPHILS % (AUTO) 0 % (1-7); LYMPHOCYTES # (AUTO) 0.65 x10^3/uL (1-3.4); LYMPHOCYTES % (AUTO) 9 % (22-44); MD NO; MEAN CORPUSCULAR HEMOGLOBIN 26.3 pg (27.5-34.5); MEAN CORPUSCULAR HGB CONC 32.1 g/dL (33.2-36.2); MEAN CORPUSCULAR VOLUME 81.9 fL (81-97); MEAN PLATELET VOLUME 8.5 fL (7.4-10.4); MONOCYTES # (AUTO) 1.31 x10^3/uL (0.2-0.8); MONOCYTES % (AUTO) 17 % (2-9); NEUTROPHILS # (AUTO) 5.57 x10^3/uL (1.8-6.8); NEUTROPHILS % (AUTO) 74 % (42-75); PLATELET COUNT 389 x10^3/uL (130-400); RED CELL DISTRIBUTION WIDTH 15.3 % (9.4-14.8)
[2018-10-10 00:01] LABS: ALANINE AMINOTRANSFERASE 22 U/L (12-78); ANION GAP 6 mmol/L (5-15); CALCIUM 8.8 mg/dL (8.5-10.1); CHLORIDE 106 mmol/L (98-107); CREATININE 0.97 mg/dL (0.7-1.3)
--- NOTE | 2018-10-10 00:02 | NUR ---
SBAR report received from RN, Aarti. Pt resting on [facility], aware of plan for CT after lab results.
--- NOTE | 2018-10-10 00:02 | NUR ---
URINE COLLECTED AND SENT. REPORT GIVEN TO JUAN DENNIS.
[2018-10-10 00:03] LABS: ALKALINE PHOSPHATASE 106 U/L (45-117); BILIRUBIN,TOTAL 0.9 mg/dL (0.2-1.0); TOTAL PROTEIN 7.6 g/dL (6.4-8.2)
[2018-10-10 00:04] LABS: MICROSCOPIC NOT IND
[2018-10-10 00:07] LABS: CULTURE INDICATED? NO
--- NOTE | 2018-10-10 00:12 | NUR ---
Pt to imaging, with daniel and sonia, via lotus.
--- NOTE | 2018-10-10 00:38 | NUR ---
Dr. Purvis at bedside to evaluate pt.
[2018-10-10] MEDS ORDERED: SODIUM CHLORIDE 0.9% 1,000ML IVBOLUS ONE (01:00)
--- NOTE | 2018-10-10 01:06 | NUR ---
NGT placed in right nare, pt tolerated procedure well. Guard remains at bedside. Pt on monitors, VSS.
--- NOTE | 2018-10-10 01:18 | NUR ---
Admitting MD at bedside to evaluate pt for admission.
--- NOTE | 2018-10-10 01:29 | NUR ---
Telephone SBAR report given to Roosevelt MARTINEZ. Abelino and sonia made aware of new room assignment.
[2018-10-10 01:50] VITALS: BP 144/92
[2018-10-10] MEDS ORDERED: morphine SULFATE 10 MG/ML, 1ML IVPush PRN (02:00)
[2018-10-10] MEDS: SODIUM CHLORIDE 0.9% 1,000 ML IV SCH ×3 (02:13→21:56)
[2018-10-10] MEDS ORDERED: OMNIPAQUE 350 MG/ML, 100ML BOTTLE ONE (02:16)
[2018-10-10 08:00] VITALS: BP 122/83
[2018-10-10] MEDS ORDERED: FAMOTIDINE 20 MG TABLET PO SCH (09:00)
[2018-10-10] MEDS: FAMOTIDINE 20 MG/2 ML IVPush SCH ×2 (10:43→20:30)
[2018-10-10 14:34] VITALS: BP 133/85
[2018-10-10] MEDS: ONDANSETRON 2MG/ML, 2ML IVPush PRN (16:53)
[2018-10-10] MEDS ORDERED: BENZOCAINE AEROSOL SPRAY 20%, 60ML TP PRN (18:30)
[2018-10-10 20:06] VITALS: BP 128/86
[2018-10-11] MEDS: ONDANSETRON 2MG/ML, 2ML IVPush PRN ×2 (01:50→08:03)
[2018-10-11 02:00] VITALS: BP 136/91
[2018-10-11 05:29] LABS: MEAN CORPUSCULAR HEMOGLOBIN 26.5 pg (27.5-34.5); MEAN CORPUSCULAR HGB CONC 32.4 g/dL (33.2-36.2); MEAN CORPUSCULAR VOLUME 81.8 fL (81-97); MEAN PLATELET VOLUME 8.3 fL (7.4-10.4); PLATELET COUNT 319 x10^3/uL (130-400); RED BLOOD COUNT 5.21 x10^6/uL (4.38-5.82); RED CELL DISTRIBUTION WIDTH 15.4 % (9.4-14.8)
[2018-10-11 05:36] LABS: ALANINE AMINOTRANSFERASE 24 U/L (12-78); ALBUMIN 3.6 g/dL (3.4-5.0); ANION GAP 6 mmol/L (5-15); CALCIUM 8.5 mg/dL (8.5-10.1); CHLORIDE 110 mmol/L (98-107); CREATININE 0.85 mg/dL (0.7-1.3)
[2018-10-11 05:39] LABS: ALKALINE PHOSPHATASE 97 U/L (45-117)
[2018-10-11 05:45] LABS: MD YES
[2018-10-11 05:47] LABS: BAND#(MANUAL) 0.23 x10^3/uL; BANDS%(MANUAL) 5 % (0-7); LYMPH#(MANUAL) 0.72 x10^3/uL (1-3.4); LYMPHS% (MANUAL) 16 % (22-44); MONOS#(MANUAL) 0.81 x10^3/uL (0.3-2.7); MONOS% (MANUAL) 18 % (2-9); SEG#(MANUAL) 2.75 x10^3/uL (1.8-6.8); SEGS% (MANUAL) 61 % (42-75)
[2018-10-11 05:48] LABS: <PLATELET ESTIMATE> ADEQUATE; <PLT MORPHOLOGY> NORMAL PLT MORPH; ANISOCYTOSIS 1+
[2018-10-11 06:46] VITALS: BP 121/83
[2018-10-11] MEDS: FAMOTIDINE 20 MG/2 ML IVPush SCH ×2 (08:03→19:24)
[2018-10-11] MEDS: SODIUM CHLORIDE 0.9% 1,000 ML IV SCH ×2 (08:03→18:00)
[2018-10-11 12:41] VITALS: BP 114/70
[2018-10-11 20:10] VITALS: BP 127/82
[2018-10-12 02:42] VITALS: BP 112/73
[2018-10-12] MEDS: SODIUM CHLORIDE 0.9% 1,000 ML IV SCH ×3 (04:22→23:48)
[2018-10-12 05:39] LABS: BASOPHILS # (AUTO) 0.02 x10^3/uL (0-0.1); BASOPHILS % (AUTO) 0 % (0-1); EOSINOPHILS # (AUTO) 0.06 x10^3/uL (0-0.4); EOSINOPHILS % (AUTO) 1 % (1-7); LYMPHOCYTES % (AUTO) 13 % (22-44); MD NO; MEAN CORPUSCULAR HEMOGLOBIN 26.9 pg (27.5-34.5); MEAN CORPUSCULAR HGB CONC 32.6 g/dL (33.2-36.2); MEAN CORPUSCULAR VOLUME 82.4 fL (81-97); MONOCYTES # (AUTO) 1.09 x10^3/uL (0.2-0.8); MONOCYTES % (AUTO) 18 % (2-9); NEUTROPHILS # (AUTO) 4.16 x10^3/uL (1.8-6.8); NEUTROPHILS % (AUTO) 68 % (42-75); PLATELET COUNT 310 x10^3/uL (130-400); RED BLOOD COUNT 5.13 x10^6/uL (4.38-5.82); RED CELL DISTRIBUTION WIDTH 15.1 % (9.4-14.8)
[2018-10-12 05:52] LABS: CHLORIDE 105 mmol/L (98-107)
[2018-10-12 06:08] LABS: ANION GAP 10 mmol/L (5-15); CALCIUM 8.4 mg/dL (8.5-10.1); CREATININE 0.77 mg/dL (0.7-1.3)
[2018-10-12 06:42] VITALS: BP 133/86
[2018-10-12] MEDS: FAMOTIDINE 20 MG/2 ML IVPush SCH ×2 (09:08→19:26)
[2018-10-12 14:10] VITALS: BP 135/84
[2018-10-12 19:13] VITALS: BP 137/91
[2018-10-12] MEDS: ONDANSETRON 2MG/ML, 2ML IVPush PRN (19:26)
[2018-10-13 00:31] VITALS: BP 124/67
[2018-10-13 05:22] LABS: BASOPHILS # (AUTO) 0.02 x10^3/uL (0-0.1); BASOPHILS % (AUTO) 0 % (0-1); EOSINOPHILS # (AUTO) 0.06 x10^3/uL (0-0.4); EOSINOPHILS % (AUTO) 1 % (1-7); LYMPHOCYTES # (AUTO) 0.73 x10^3/uL (1-3.4); LYMPHOCYTES % (AUTO) 15 % (22-44); MD NO; MEAN CORPUSCULAR HEMOGLOBIN 26.7 pg (27.5-34.5); MEAN CORPUSCULAR HGB CONC 32.5 g/dL (33.2-36.2); MEAN CORPUSCULAR VOLUME 82.2 fL (81-97); MEAN PLATELET VOLUME 8.4 fL (7.4-10.4); MONOCYTES # (AUTO) 0.82 x10^3/uL (0.2-0.8); MONOCYTES % (AUTO) 17 % (2-9); NEUTROPHILS # (AUTO) 3.29 x10^3/uL (1.8-6.8); NEUTROPHILS % (AUTO) 67 % (42-75); PLATELET COUNT 323 x10^3/uL (130-400); RED BLOOD COUNT 5.16 x10^6/uL (4.38-5.82); RED CELL DISTRIBUTION WIDTH 14.8 % (9.4-14.8)
[2018-10-13 05:28] LABS: ANION GAP 8 mmol/L (5-15); CALCIUM 8.7 mg/dL (8.5-10.1); CHLORIDE 106 mmol/L (98-107)
[2018-10-13 07:30] VITALS: BP 104/61
[2018-10-13] MEDS: FAMOTIDINE 20 MG/2 ML IVPush SCH ×2 (08:12→19:59)
[2018-10-13] MEDS: POTASSIUM CHLORIDE 20 MEQ TAB.ER.PRT PO SCH ×5 (10:57→15:25)
[2018-10-13] MEDS: SODIUM CHLORIDE 0.9% 1,000 ML IV SCH ×2 (10:57→19:59)
[2018-10-13 12:13] VITALS: BP 110/71
[2018-10-13 20:58] VITALS: BP 105/70
[2018-10-14 01:48] VITALS: BP 104/67
[2018-10-14 05:26] LABS: BASOPHILS # (AUTO) 0.01 x10^3/uL (0-0.1); BASOPHILS % (AUTO) 0 % (0-1); EOSINOPHILS # (AUTO) 0.18 x10^3/uL (0-0.4); EOSINOPHILS % (AUTO) 4 % (1-7); LYMPHOCYTES # (AUTO) 1.17 x10^3/uL (1-3.4); LYMPHOCYTES % (AUTO) 26 % (22-44); MD NO; MEAN CORPUSCULAR HEMOGLOBIN 27.2 pg (27.5-34.5); MEAN CORPUSCULAR VOLUME 82.3 fL (81-97); MEAN PLATELET VOLUME 8.3 fL (7.4-10.4); MONOCYTES # (AUTO) 0.71 x10^3/uL (0.2-0.8); MONOCYTES % (AUTO) 16 % (2-9); NEUTROPHILS # (AUTO) 2.47 x10^3/uL (1.8-6.8); NEUTROPHILS % (AUTO) 54 % (42-75); PLATELET COUNT 313 x10^3/uL (130-400); RED BLOOD COUNT 4.92 x10^6/uL (4.38-5.82); RED CELL DISTRIBUTION WIDTH 15.2 % (9.4-14.8)
[2018-10-14 05:37] LABS: ANION GAP 5 mmol/L (5-15); CALCIUM 8.1 mg/dL (8.5-10.1); CHLORIDE 112 mmol/L (98-107); CREATININE 0.81 mg/dL (0.7-1.3)
[2018-10-14] MEDS: SODIUM CHLORIDE 0.9% 1,000 ML IV SCH (05:59)
[2018-10-14 07:10] VITALS: BP 101/65
[2018-10-14] MEDS: FAMOTIDINE 20 MG/2 ML IVPush SCH (09:34)
[2018-10-14 12:13] VITALS: BP 101/67
[2018-10-14 14:21] VITALS: BP 104/66
== END 2018-10-14 16:00 | DRG 390 ==
LOC: ED 10-10 00:55 → 4NOR 10-10 00:59 → ED 10-10 01:19
PROVIDERS: ADMIT Family Medicine; ATTEND Family Medicine
DX: K56.50 Intestinal adhesions [bands], unspecified as to partial versus complete obstruction (principal); E86.0 Dehydration; F17.200 Nicotine dependence, unspecified, uncomplicated; Z90.49 Acquired absence of other specified parts of digestive tract; Z93.3 Colostomy status
CPT/HCPCS: 36415; 99285; J3490; 74177; 80048; 80053; 81003; 83690; 84132; 85025; 90656; G0378; J2405; Q9967; J7030